=== PATIENT | male | born 1955 | race Caucasian/White ===

== ENCOUNTER → 2024-01-19 08:16 | Outpatient (CLI) | payer OTHER, SELFPAY | PROVIDERS: Visit Provider Surgery | DX: L59.8 Other specified disorders of the skin and subcutaneous tissue related to radiation (principal); M27.2 Inflammatory conditions of jaws | CPT/HCPCS: 99203; 99212 ==

== ENCOUNTER → 2024-01-22 09:34 | Outpatient (CLI) | payer OTHER, SELFPAY ==
--- NOTE | 2024-01-22 09:37 | DI.RAD.S_ITS ---
PROCEDURE: XR CHEST 2V INDICATIONS: eval for Hyperbaric Oxygen Tx TECHNIQUE: 2 views of the chest were acquired. COMPARISON: None. FINDINGS: Heart, mediastinum and pulmonary vascular: Heart is normal in size and configuration. Mediastinum is unremarkable. Pulmonary vascular is normal. Lungs: Clear Pleural spaces: Normal-no effusions or pneumothorax. Bones and soft tissues: Moderate degenerative disc disease seen throughout the mid lower thoracic spine. IMPRESSION: No cardiopulmonary disease. Dictated by: Javi Potts M.D. on 01/23/2024 at 8:46 Approved by: Javi Potts M.D. on 01/23/2024 at 8:47
== END ==
LOC: RAD 09:37
PROVIDERS: Referring Provider Surgery; Visit Provider Surgery
DX: M27.2 Inflammatory conditions of jaws (principal); M51.34 Other intervertebral disc degeneration, thoracic region
CPT/HCPCS: 71046

== ENCOUNTER → 2024-01-26 13:32 | Outpatient (CLI) | payer OTHER, SELFPAY | LOC: WC 13:32 | PROVIDERS: Referring Provider Family Medicine; Visit Provider Surgery | DX: L59.8 Other specified disorders of the skin and subcutaneous tissue related to radiation (principal); M27.2 Inflammatory conditions of jaws | CPT/HCPCS: 99183; G0277 ==

== ENCOUNTER → 2024-01-27 13:05 | Outpatient (CLI) | payer OTHER, SELFPAY | LOC: WC 13:05 | PROVIDERS: Referring Provider Family Medicine; Visit Provider Surgery | DX: L59.8 Other specified disorders of the skin and subcutaneous tissue related to radiation (principal); M27.2 Inflammatory conditions of jaws | CPT/HCPCS: 99183; G0277 ==

== ENCOUNTER → 2024-01-28 13:12 | Outpatient (CLI) | payer OTHER, SELFPAY | LOC: WC 13:13 | PROVIDERS: Referring Provider Family Medicine; Visit Provider Surgery | DX: L59.8 Other specified disorders of the skin and subcutaneous tissue related to radiation (principal); M27.2 Inflammatory conditions of jaws | CPT/HCPCS: 99183; G0277 ==

== ENCOUNTER → 2024-02-04 14:33 | Outpatient (CLI) | payer OTHER, SELFPAY | LOC: WC 14:34 | PROVIDERS: Referring Provider Family Medicine; Visit Provider Surgery | DX: L59.8 Other specified disorders of the skin and subcutaneous tissue related to radiation (principal); M27.2 Inflammatory conditions of jaws | CPT/HCPCS: 99183; G0277 ==

== ENCOUNTER → 2024-02-05 13:29 | Outpatient (CLI) | payer OTHER, SELFPAY | LOC: WC 13:30 | PROVIDERS: PCP Dentist Oral and Maxillofacial Surgery; Referring Provider Dentist Oral and Maxillofacial Surgery; Visit Provider Surgery | DX: L59.8 Other specified disorders of the skin and subcutaneous tissue related to radiation (principal); M27.2 Inflammatory conditions of jaws | CPT/HCPCS: 99183; G0277 ==

== ENCOUNTER → 2024-02-06 13:35 | Outpatient (CLI) | payer OTHER, SELFPAY | LOC: WC 13:35 | PROVIDERS: PCP Dentist Oral and Maxillofacial Surgery; Referring Provider Family Medicine; Visit Provider Physician Assistant | DX: L59.8 Other specified disorders of the skin and subcutaneous tissue related to radiation (principal); M27.2 Inflammatory conditions of jaws | CPT/HCPCS: 99183; G0277 ==

== ENCOUNTER → 2024-02-09 13:56 | Outpatient (CLI) | payer OTHER, SELFPAY | LOC: WC 13:57 | PROVIDERS: PCP Dentist Oral and Maxillofacial Surgery; Referring Provider Family Medicine; Visit Provider Surgery | DX: L59.8 Other specified disorders of the skin and subcutaneous tissue related to radiation (principal); M27.2 Inflammatory conditions of jaws | CPT/HCPCS: 99183; G0277 ==

== ENCOUNTER → 2024-02-10 13:34 | Outpatient (CLI) | payer OTHER, SELFPAY | LOC: WC 13:34 | PROVIDERS: PCP Dentist Oral and Maxillofacial Surgery; Referring Provider Family Medicine; Visit Provider Surgery | DX: L59.8 Other specified disorders of the skin and subcutaneous tissue related to radiation (principal); M27.2 Inflammatory conditions of jaws | CPT/HCPCS: 99183; G0277 ==

== ENCOUNTER → 2024-02-11 13:03 | Outpatient (CLI) | payer OTHER, SELFPAY | PROVIDERS: PCP Dentist Oral and Maxillofacial Surgery; Referring Provider Family Medicine; Visit Provider Physician Assistant | DX: L59.8 Other specified disorders of the skin and subcutaneous tissue related to radiation (principal); M27.2 Inflammatory conditions of jaws | CPT/HCPCS: 99183; G0277 ==

== ENCOUNTER → 2024-02-12 13:09 | Outpatient (CLI) | payer OTHER, SELFPAY | LOC: WC 13:10 | PROVIDERS: PCP Dentist Oral and Maxillofacial Surgery; Referring Provider Family Medicine; Visit Provider Physician Assistant | DX: L59.8 Other specified disorders of the skin and subcutaneous tissue related to radiation (principal); M27.2 Inflammatory conditions of jaws | CPT/HCPCS: 99183; G0277 ==

== ENCOUNTER → 2024-02-13 13:02 | Outpatient (CLI) | payer OTHER, SELFPAY | LOC: WC 13:03 | PROVIDERS: PCP Dentist Oral and Maxillofacial Surgery; Referring Provider Family Medicine; Visit Provider Physician Assistant | DX: L59.8 Other specified disorders of the skin and subcutaneous tissue related to radiation (principal); M27.2 Inflammatory conditions of jaws | CPT/HCPCS: 99183; G0277 ==

== ENCOUNTER → 2024-02-16 12:58 | Outpatient (CLI) | payer OTHER, SELFPAY | LOC: WC 12:58 | PROVIDERS: PCP Dentist Oral and Maxillofacial Surgery; Referring Provider Family Medicine; Visit Provider Surgery | DX: L59.8 Other specified disorders of the skin and subcutaneous tissue related to radiation (principal); M27.2 Inflammatory conditions of jaws | CPT/HCPCS: 99183; G0277 ==

== ENCOUNTER → 2024-02-17 14:59 | Outpatient (CLI) | payer OTHER, SELFPAY | LOC: WC 15:00 | PROVIDERS: PCP Dentist Oral and Maxillofacial Surgery; Referring Provider Family Medicine; Visit Provider Surgery | DX: L59.8 Other specified disorders of the skin and subcutaneous tissue related to radiation (principal); M27.2 Inflammatory conditions of jaws | CPT/HCPCS: 99183; G0277 ==

== ENCOUNTER → 2024-02-18 13:05 | Outpatient (CLI) | payer OTHER, SELFPAY | PROVIDERS: PCP Dentist Oral and Maxillofacial Surgery; Referring Provider Family Medicine; Visit Provider Surgery | DX: L59.8 Other specified disorders of the skin and subcutaneous tissue related to radiation (principal); M27.2 Inflammatory conditions of jaws | CPT/HCPCS: 99183; G0277 ==

== ENCOUNTER → 2024-02-19 13:20 | Outpatient (CLI) | payer OTHER, SELFPAY | PROVIDERS: PCP Dentist Oral and Maxillofacial Surgery; Referring Provider Family Medicine; Visit Provider Surgery | DX: L59.8 Other specified disorders of the skin and subcutaneous tissue related to radiation (principal); M27.2 Inflammatory conditions of jaws | CPT/HCPCS: 99183; G0277 ==

== ENCOUNTER → 2024-02-20 13:35 | Outpatient (CLI) | payer OTHER, SELFPAY | PROVIDERS: PCP Dentist Oral and Maxillofacial Surgery; Referring Provider Family Medicine; Visit Provider Surgery | DX: L59.8 Other specified disorders of the skin and subcutaneous tissue related to radiation (principal); M27.2 Inflammatory conditions of jaws | CPT/HCPCS: 99183; G0277 ==

== ENCOUNTER → 2024-02-23 13:16 | Outpatient (CLI) | payer OTHER, SELFPAY | PROVIDERS: PCP Dentist Oral and Maxillofacial Surgery; Referring Provider Family Medicine; Visit Provider Surgery | DX: L59.8 Other specified disorders of the skin and subcutaneous tissue related to radiation (principal); M27.2 Inflammatory conditions of jaws | CPT/HCPCS: 99183; G0277 ==

== ENCOUNTER → 2024-02-24 13:25 | Outpatient (CLI) | payer OTHER, SELFPAY | PROVIDERS: PCP Dentist Oral and Maxillofacial Surgery; Referring Provider Family Medicine; Visit Provider Surgery | DX: L59.8 Other specified disorders of the skin and subcutaneous tissue related to radiation (principal); M27.2 Inflammatory conditions of jaws | CPT/HCPCS: 99183; G0277 ==

== ENCOUNTER → 2024-02-25 12:57 | Outpatient (CLI) | payer OTHER, SELFPAY | PROVIDERS: PCP Dentist Oral and Maxillofacial Surgery; Referring Provider Family Medicine; Visit Provider Surgery | DX: L59.8 Other specified disorders of the skin and subcutaneous tissue related to radiation (principal); M27.2 Inflammatory conditions of jaws | CPT/HCPCS: 99183; G0277 ==

== ENCOUNTER → 2024-02-26 13:19 | Outpatient (CLI) | payer OTHER, SELFPAY | PROVIDERS: PCP Dentist Oral and Maxillofacial Surgery; Referring Provider Family Medicine; Visit Provider Surgery | DX: L59.8 Other specified disorders of the skin and subcutaneous tissue related to radiation (principal); M27.2 Inflammatory conditions of jaws | CPT/HCPCS: 99183; G0277 ==

== ENCOUNTER → 2024-02-27 13:09 | Outpatient (CLI) | payer OTHER, SELFPAY | PROVIDERS: PCP Dentist Oral and Maxillofacial Surgery; Referring Provider Family Medicine; Visit Provider Physician Assistant | DX: L59.8 Other specified disorders of the skin and subcutaneous tissue related to radiation (principal); M27.2 Inflammatory conditions of jaws | CPT/HCPCS: 99183; G0277 ==

== ENCOUNTER → 2024-03-01 13:01 | Outpatient (CLI) | payer OTHER, SELFPAY | PROVIDERS: PCP Dentist Oral and Maxillofacial Surgery; Referring Provider Family Medicine; Visit Provider Surgery | DX: L59.8 Other specified disorders of the skin and subcutaneous tissue related to radiation (principal); M27.2 Inflammatory conditions of jaws | CPT/HCPCS: 99183; G0277 ==

== ENCOUNTER → 2024-03-03 10:47 | Outpatient (CLI) | payer OTHER, SELFPAY | PROVIDERS: PCP Dentist Oral and Maxillofacial Surgery; Referring Provider Dentist Oral and Maxillofacial Surgery; Visit Provider Surgery | DX: L59.8 Other specified disorders of the skin and subcutaneous tissue related to radiation (principal); M27.2 Inflammatory conditions of jaws | CPT/HCPCS: 99183; G0277 ==

== ENCOUNTER → 2024-03-04 08:53 | Outpatient (CLI) | payer OTHER, SELFPAY | PROVIDERS: PCP Dentist Oral and Maxillofacial Surgery; Referring Provider Family Medicine; Visit Provider Surgery | DX: L59.8 Other specified disorders of the skin and subcutaneous tissue related to radiation (principal); M27.2 Inflammatory conditions of jaws | CPT/HCPCS: 99183; G0277 ==

== ENCOUNTER → 2024-03-08 14:47 | Outpatient (CLI) | payer OTHER, SELFPAY | PROVIDERS: PCP Dentist Oral and Maxillofacial Surgery; Referring Provider Family Medicine; Visit Provider Surgery | DX: L59.8 Other specified disorders of the skin and subcutaneous tissue related to radiation (principal); M27.2 Inflammatory conditions of jaws | CPT/HCPCS: 99183; G0277 ==

== ENCOUNTER → 2024-03-09 13:12 | Outpatient (CLI) | payer OTHER, SELFPAY | PROVIDERS: PCP Dentist Oral and Maxillofacial Surgery; Referring Provider Family Medicine; Visit Provider Surgery | DX: L59.8 Other specified disorders of the skin and subcutaneous tissue related to radiation (principal); M27.2 Inflammatory conditions of jaws | CPT/HCPCS: 99183; G0277 ==

== ENCOUNTER → 2024-03-15 13:51 | Outpatient (CLI) | payer OTHER, SELFPAY | PROVIDERS: PCP Dentist Oral and Maxillofacial Surgery; Referring Provider Family Medicine; Visit Provider Surgery | DX: L59.8 Other specified disorders of the skin and subcutaneous tissue related to radiation (principal); M27.2 Inflammatory conditions of jaws | CPT/HCPCS: 99183; G0277 ==

== ENCOUNTER → 2024-03-16 15:20 | Outpatient (CLI) | payer OTHER, SELFPAY | PROVIDERS: PCP Dentist Oral and Maxillofacial Surgery; Referring Provider Family Medicine; Visit Provider Surgery | DX: L59.8 Other specified disorders of the skin and subcutaneous tissue related to radiation (principal); M27.2 Inflammatory conditions of jaws | CPT/HCPCS: 99183; G0277 ==

== ENCOUNTER → 2024-03-18 13:30 | Outpatient (CLI) | payer OTHER, SELFPAY | PROVIDERS: PCP Dentist Oral and Maxillofacial Surgery; Referring Provider Family Medicine; Visit Provider Surgery | DX: L59.8 Other specified disorders of the skin and subcutaneous tissue related to radiation (principal); M27.2 Inflammatory conditions of jaws | CPT/HCPCS: 99183; G0277 ==

== ENCOUNTER → 2024-03-19 14:14 | Outpatient (CLI) | payer OTHER, SELFPAY | PROVIDERS: PCP Dentist Oral and Maxillofacial Surgery; Referring Provider Family Medicine; Visit Provider Physician Assistant | DX: L59.8 Other specified disorders of the skin and subcutaneous tissue related to radiation (principal); M27.2 Inflammatory conditions of jaws | CPT/HCPCS: 99183; G0277 ==